=== PATIENT | male | born 1950 | race Caucasian/White ===

== ENCOUNTER → 2016-04-10 | Outpatient (CLI) | payer MEDICARE ==
[2016-04-10 12:05] LABS: Blood Urea Nitrogen 15 mg/dL (9-20); Non-African American GFR(MDRD) >60 (>60 ml/min/1.73 sqM)
--- NOTE | 2016-04-10 13:03 | CT ---
EXAMINATION TYPE: CT ChestAbdPelvis w con DATE OF EXAM: 04/10/2016 12:44 PM COMPARISON: November 16, 2015 HISTORY: Patient has no complaints at time of study. Follow up study for known liposarcoma. CT DLP: 1832 mGycm CONTRAST: CT scan of the chest, abdomen and pelvis is performed with Oral Contrast and with IV Contrast, patien t injected with 100 mL of Omnipaque 300. CT Chest: LUNGS: The lungs are clear and free of infiltrate or atelectasis. No pulmonary nodule or mass is det ected. No pleural effusion or CT evidence of interstitial lung disease. MEDIASTINUM: Thoracic aorta is of normal caliber. The heart is not enlarged. No evidence for media stinal mass or adenopathy. HILAR STRUCTURES: No evidence for mass. No hilar adenopathy is appreciated. OTHER: No significant abnormality. CONTRAST CT ABDOMEN AND PELVIS FINDINGS: LIVER/GB: Calcified gallstone is seen within the gallbladder. No space occupying hepatic lesion. Bili yamilka tree is of normal caliber. PANCREAS: No inflammation. No distinct mass. SPLEEN: No splenic enlargement. No lesion seen. ADRENALS: No nodule. No thickening. KIDNEYS/BLADDER: No hydronephrosis. No nephrolithiasis. No disctinct renal mass. BOWEL: Normal appendix. Normal bowel caliber. No inflammation. GENITAL ORGANS: No gross abnormality. LYMPH NODES: No greater than 1cm abdominal or pelvic lymph nodes are appreciated. AORTA: No significant abnormality. OSSEOUS STRUCTURES: No significant abnormality is seen. OTHER: Again noted is a large heterogenous intra-abdominal mass with solid, fluid/necrotic and calcif ic components seen. Greatest transverse measurement is currently 24 cm versus 21 cm previously, AP di mension is 16 cm versus 12.1 cm previously and craniocaudal measurement is 15 cm versus 18.7 [address] Ritika cent to the descending colon at the L4-5 level there is a new satellite mass with internal calcificat ions and measures 5.5 x 4.0 cm. Stable satellite mass is noted in the region of the left internal alexus ac chain which measures of 4.0 cm in greatest dimension versus 3.2 cm previously. Resolution of small ascites seen previously. IMPRESSION: 1. Large heterogenous intra-abdominal mass appears to have enlarged slightly in size in the interval . In addition there is a new satellite nodule adjacent to the descending colon. Satellite nodule in t he pelvis is slightly larger in size as well. 2. No evidence for metastatic disease to solid abdominal viscera or the lungs. 3. Cholelithiasis.
--- NOTE | 2016-04-11 12:03 | ECHOF ---
Referral Reason:C49.9 Lipoma, Chemo Exposure Z01.818 MEASUREMENTS -------- HEIGHT: 182.9 cm WEIGHT: 72.6 kg BP: RVIDd: 3.1 cm (< 3.3) IVSd: 1.0 cm (0.6 - 1.1) LVIDd: 5.0 cm (3.9 - 5.3) LVPWd: 1.1 cm (0.6 - 1.1) IVSs: 1.3 cm LVIDs: 3.8 cm LVPWs: 1.0 cm LA Diam: 3.3 cm (2.7 - 3.8) LAESV Index (A-L): 28.09 ml/m Ao Diam: 3.6 cm (2.0 - 3.7) AV Cusp: 2.4 cm (1.5 - 2.6) LA Diam: 3.4 cm (2.7 - 3.8) MV EXCURSION: 22.560 mm (> 18.000) MV EF SLOPE: 108 mm/s (70 - 150) EPSS: 0.5 cm MV E Sebastien: 0.60 m/s MV DecT: 266 ms MV A Sebastien: 0.72 m/s MV E/A Ratio: 0.84 RAP: 5.00 mmHg RVSP: 38.87 mmHg FINDINGS -------- Sinus rhythm. This was a technically good study. LV size, wall thickness and systolic function are normal, with an EF greater than 55%. The right ventricle is normal in size. LA is midly dilated 29-33ml/m2. The right atrial size is normal. There is mild aortic valve sclerosis. There is no evidence of aortic regurgitation. Mild mitral annular calcification present. Mild mitral regurgitation is present. Mild tricuspid regurgitation present. There is mild pulmonary hypertension. The right ventricular systolic pressure, as measured by Doppler, is 38.87mmHg. There is no pulmonic regurgitation present. The aortic root size is normal. There is no pericardial effusion. CONCLUSIONS -------- 1. LV size, wall thickness and systolic function are normal, with an EF greater than 55%. 2. LA is midly dilated 29-33ml/m2. 3. There is mild aortic valve sclerosis. 4. Mild mitral annular calcification present. 5. Mild mitral regurgitation is present. 6. Mild tricuspid regurgitation present. 7. There is mild pulmonary hypertension. 8. The right ventricular systolic pressure, as measured by Doppler, is 38.87mmHg. COMPOSITE TECHNICIAN: Angélica Foster RDCS
== END | disposition home or self-care (01) ==
LOC: RADCTMAIN 11:04
PROVIDERS: ATTEND Internal Medicine Hematology & Oncology
DX: C49.9 Malignant neoplasm of connective and soft tissue, unspecified (principal); R19.00 Intra-abdominal and pelvic swelling, mass and lump, unspecified site; K80.20 Calculus of gallbladder without cholecystitis without obstruction; K63.89 Other specified diseases of intestine; I08.8 Other rheumatic multiple valve diseases
CPT/HCPCS: 93306; 82565; 84520; 71260; 74177; 36415; Q9967

== ENCOUNTER → 2016-07-01 | Outpatient (CLI) | payer MEDICARE ==
--- NOTE | 2016-07-01 09:44 | CT ---
EXAMINATION TYPE: CT abdomen pelvis w con DATE OF EXAM: 07/01/2016 8:32 AM COMPARISON: 04/10/2016 HISTORY: Patient has no complaints at time of study. Follow up study for known liposarcoma. CT DLP: 641.3 mGycm CONTRAST: CT scan of the abdomen and pelvis is performed with Oral Contrast and with IV Contrast, patient injec jose with 100 mL of Omnipaque 300. FINDINGS: LUNG BASES-: No visible nodule. No infiltrate. LIVER/GB: Calcified gallstone identified. No space occupying hepatic lesion. Biliary tree is of no rmal caliber. PANCREAS: There is new masslike fullness involving the pancreatic tail measuring 3.7 x 2.6 cm. The re mainder of the pancreas is unremarkable. SPLEEN: No splenic enlargement. No lesion seen. ADRENALS: No nodule. No thickening. KIDNEYS/BLADDER: No hydronephrosis. No nephrolithiasis. No disctinct renal mass. Urinary bladder g rossly unremarkable. BOWEL: Normal appendix. Normal bowel caliber. No inflammation. GENITAL ORGANS: No gross abnormality. LYMPH NODES: No greater than 1cm abdominal or pelvic lymph nodes are appreciated. AORTA: No significant abnormality. OSSEOUS STRUCTURES: No significant abnormality is seen. OTHER: Large heterogenous intra-abdominal mass with solid, fluid&^ IMPRESSION: 1. Dominant intra-abdominal mass persists although is a slightly smaller in size. Additional satellit e nodules also persist although appear to be smaller in size. 2. Masslike fullness of the pancreatic tail is a new finding. Additional lesion in this region or alberto creatic primary is not excluded.
== END ==
LOC: RADCTMAIN 07:36
PROVIDERS: ATTEND Internal Medicine Medical Oncology
DX: C49.9 Malignant neoplasm of connective and soft tissue, unspecified (principal); R19.00 Intra-abdominal and pelvic swelling, mass and lump, unspecified site
CPT/HCPCS: 74177; Q9967

== ENCOUNTER → 2016-07-29 | Outpatient (CLI) | payer MEDICARE ==
[2016-07-29 11:06] LABS: Anisocytosis Slight; Aty Lym Flag Slight; CH 29.8; CHCM 32.5; HCT 34.6 % (39.0-53.0); HDW 2.45; HGB 11.3 gm/dL (13.0-17.5); MCHC 32.6 g/dL (31.0-37.0); MCV 91.8 fL (80.0-100.0); Mean Platelet Volume 7.5; RBC 3.77 m/uL (4.30-5.90); RDW 16.8 % (11.5-15.5); WBC 2.9 k/uL (3.8-10.6)
[2016-07-29 11:18] LABS: Add Differential Manual Differential
[2016-07-29 11:21] LABS: Manual Review Performed; Nucleated Red Blood Cells 0 /100 WBC (0-0); Total Cells Counted 100
== END | disposition home or self-care (01) ==
LOC: LABWHC1 10:30
PROVIDERS: ATTEND Internal Medicine Hematology
DX: C49.9 Malignant neoplasm of connective and soft tissue, unspecified (principal); D69.59 Other secondary thrombocytopenia
CPT/HCPCS: 36415; 85025

== ENCOUNTER → 2016-08-19 | Outpatient (CLI) | payer MEDICARE ==
[2016-08-19 10:19] LABS: Anisocytosis Moderate; Basophils % (A) 1 %; CH 30.8; CHCM 32.1; Eosinophils # (A) 0.1 k/uL (0-0.7); Eosinophils % (A) 2 %; HCT 35.4 % (39.0-53.0); HDW 2.49; HGB 11.4 gm/dL (13.0-17.5); Luc # (Auto) 0.13; Luc % (Auto) 4; Lymphocytes # (A) 0.8 k/uL (1.0-4.8); Lymphocytes % (A) 24 %; MCHC 32.1 g/dL (31.0-37.0); MCV 96.5 fL (80.0-100.0); Macrocytosis Moderate; Monocytes # (A) 0.1 k/uL (0-1.0); Monocytes % (A) 3 %; Neutrophils # (A) 2.1 k/uL (1.3-7.7); Neutrophils % (A) 66 %; RBC 3.67 m/uL (4.30-5.90); RDW 20.7 % (11.5-15.5); WBC 3.2 k/uL (3.8-10.6); WBC (Perox) 3.45
== END | disposition home or self-care (01) ==
LOC: LABWHC1 09:25
PROVIDERS: ATTEND Internal Medicine Hematology
DX: C49.9 Malignant neoplasm of connective and soft tissue, unspecified (principal)
CPT/HCPCS: 36415; 85025

== ENCOUNTER → 2016-09-01 | Outpatient (CLI) | payer MEDICARE ==
[2016-09-01 08:23] LABS: ALT 24 U/L (21-72); AST 14 U/L (17-59); Alkaline Phosphatase 195 U/L (38-126); Anion Gap 11 mmol/L; Blood Urea Nitrogen 18 mg/dL (9-20); Calcium 8.5 mg/dL (8.4-10.2); Carbon Dioxide 27 mmol/L (22-30); Chloride 105 mmol/L (98-107); Glucose 141 mg/dL (74-99); Non-African American GFR(MDRD) >60 (>60 ml/min/1.73 sqM); Potassium 3.7 mmol/L (3.5-5.1); Sodium 143 mmol/L (137-145); Total Bilirubin 0.5 mg/dL (0.2-1.3); Total Protein 6.8 g/dL (6.3-8.2)
--- NOTE | 2016-09-01 10:08 | CT ---
EXAMINATION TYPE: CT ChestAbdPelvis w con DATE OF EXAM: 09/01/2016 INDICATION: Liposarcoma COMPARISON: 07/01/2016 CT abdomen pelvis, 04/10/2016 CT chest abdomen pelvis CT DLP: 901.60 mGycm CONTRAST: 100 mL Omnipaque 300 TECHNIQUE: Axial images at 5 mm thick sections. Reconstructed images in the coronal plane. Delayed images through the kidneys. FINDINGS: CT CHEST: Portion of the thyroid visualized is normal. No suspicious lung nodules or focal infiltrates are present. A 1.0 cm lymph node is in the pretracheal space near the superior mediastinum. This has enlarged from March 2016 The ascending aorta diameter at the level of the main pulmonary artery is 3.7 cm. The main pulmonary artery diameter at the bifurcation is 2.[address] ABDOMEN: The large mass within the anterior mid abdomen is currently estimated to measure 11.5 AP x 20.6 transverse x 16.5 cranial caudal cm. This is similar in size to the comparison of June 2016. Previous measurements provided were transverse dimension 24 cm and 16 cm AP dimension and 15 cm crani ocaudal dimension. There is a 4.1 x 5.2 cm enhancing mass mid left paracolic gutter. Series 3 image 1 07. This was present previously and is slightly larger over the interval. There is mesenteric fat str anding within the mid pelvis which may be displacing some loops of bowel. Liver: There is diffuse fatty infiltration through the liver with some focal spurring along the later al margin of the right lobe. Spleen: Normal Pancreas: There is a heterogenous slightly hypodense 4.3 x 3.7 cm the tail of the pancreas mass. This is larger than the comparison of 07/01/2016. Adrenal glands: The adrenal glands are normal. Gallbladder: Gallstone is present. Kidneys: No masses are evident. No hydronephrosis is present. No cysts are present. Delayed images were obtained through the kidneys, which remain unremarkable. Aorta: Vascular calcification is within the aorta. Inferior vena cava: Normal. CT PELVIS: Loops of bowel within the abdomen and pelvis are normal. Diverticular changes are within the sigm oid colon. Some displacement of loops of bowel from pelvic mesenteric fat may be present within the u pper pelvis. Appendix: Not identified. Urinary bladder: Decompressed with limited evaluation. Genitourinary structures: Prostate is prominent. Osseous structures: No suspicious lytic or sclerotic lesions. IMPRESSIONS: 1. Large mid abdominal mass is similar to the comparison study. 2. Enlarging left paracolic mass in tail of pancreas mass. 3. Borderline enlarged superior mediastinal lymph node, increased in size from June 2016. 4. Gallstone
== END | disposition home or self-care (01) ==
LOC: RADCTMAIN 07:38
PROVIDERS: ATTEND Internal Medicine Hematology
DX: C49.9 Malignant neoplasm of connective and soft tissue, unspecified (principal); K80.80 Other cholelithiasis without obstruction; K63.89 Other specified diseases of intestine
CPT/HCPCS: 80053; 71260; 74177; 36415; Q9967

== ENCOUNTER → 2016-10-27 | Outpatient (CLI) | payer MEDICARE ==
[2016-10-27 08:10] LABS: Blood Urea Nitrogen 15 mg/dL (9-20); Non-African American GFR(MDRD) >60 (>60 ml/min/1.73 sqM)
--- NOTE | 2016-10-27 09:11 | CT ---
EXAMINATION TYPE: CT ChestAbdPelvis w con DATE OF EXAM: 10/27/2016 COMPARISON: 09/01/2016 and 07/01/2016. HISTORY: Liposarcoma (dedifferentiated) CT DLP: 985.4 mGycm. Automated Exposure Control for Dose Reduction was Utilized. CONTRAST: CT scan of the thorax, abdomen and pelvis is performed with IV Contrast, patient injected with 100 mL of Omnipaque 300. FINDINGS: LUNGS: The lungs are grossly clear, there is no concerning parenchymal mass or nodule identified. T here is no pleural effusion or pneumothorax seen. The tracheobronchial tree is patent. MEDIASTINUM: The previously seen pretracheal lymph node represents fluid within the aorticopulmonary recess. There are no greater than 1 cm hilar or mediastinal lymph nodes. No pericardial effusion is seen. OTHER: Note is made of retroareolar left asymmetric gynecomastia. Mild calcific atheromatous changes are seen of the coronary arteries, three-vessel. LIVER/GB: The previously seen hepatic steatosis has improved as well as the transient hepatic attenua tion difference. Single hypoattenuated punctate hepatic focus near the dome of the diaphragm is prese nt and too small to accurately characterize. Cholelithiasis is again noted. MESENTERY: When measured in the same planes the heterogenous mass representing pathologically proven dedifferentiated liposarcoma is overall similar in size in comparison to the prior exam of 09/01/2016, growing minimally in craniocaudal dimension, as it measures 21.0 x 11.5 x 17.6 cm and previously lesli sured 20.6 x 11.5 x 16.5 cm. On the exam previous to that in June 2016 this measured 24 x 16 x 15 cm . There is minimal mass effect upon the inferior vena cava and displacement of bowel loops without ev idence of bowel obstruction or bowel wall thickening to indicate vascular compromise. Again there is haziness of the central mesentery and surrounding mesenteric fat. No new peritoneal implants or nodul es are identified. PANCREAS: There is continued interval growth of the heterogenous pancreatic lesion containing coarse calcifications, with similar characteristics to the primary mesenteric neoplasm. This currently measu res 4.1 x 5.0 cm and previously measured 4.3 x 3.7 cm. There is no associated ductal dilatation. SPLEEN: No significant abnormality is seen. ADRENALS: No significant abnormality is seen. KIDNEYS: No significant abnormality is seen. BOWEL: Sigmoid diverticulosis without evidence of diverticulitis. LYMPH NODES: At the aortic iliac bifurcation there is a single prominent lymph node measuring 1.1 cm in short axis, similar to the prior. Additional lymph node within the left lateral mesentery on serie s 3 image 86 has decreased in size from the prior exam currently also measuring 1.1 cm in short axis. . OSSEOUS STRUCTURES: No significant abnormality is seen. OTHER: No significant additional abnormality is seen. IMPRESSION: 1. Minimal enlargement of the primary mesenteric dedifferentiated liposarcoma increasing only approxi mately 1.0 cm in craniocaudal dimension. Two mesenteric lymph nodes are similar from the prior exam, mildly enlarged. 2. Continued enlargement of the pancreatic tail mass, which should be considered metastatic disease u ntil proven otherwise. 3. No evidence of adenopathy or metastasis within the chest. 4. Cholelithiasis and sigmoid diverticulosis.
== END | disposition home or self-care (01) ==
LOC: RADCTMAIN 07:36
PROVIDERS: ATTEND Internal Medicine Medical Oncology
DX: C49.9 Malignant neoplasm of connective and soft tissue, unspecified (principal); C76.8 Malignant neoplasm of other specified ill-defined sites; K80.20 Calculus of gallbladder without cholecystitis without obstruction; K57.30 Diverticulosis of large intestine without perforation or abscess without bleeding
CPT/HCPCS: 82565; 84520; 71260; 74177; Q9967

== ENCOUNTER → 2017-04-13 | Outpatient (CLI) | payer MEDICARE ==
[2017-04-13 08:05] LABS: ALT 23 U/L (21-72); AST 13 U/L (17-59); Albumin 3.7 g/dL (3.5-5.0); Alkaline Phosphatase 129 U/L (38-126); Anion Gap 9 mmol/L; Blood Urea Nitrogen 13 mg/dL (9-20); Calcium 8.8 mg/dL (8.4-10.2); Carbon Dioxide 29 mmol/L (22-30); Chloride 105 mmol/L (98-107); Glucose 97 mg/dL (74-99); LDH 383 U/L (313-618); Phosphorus 3.3 mg/dL (2.5-4.5); Potassium 4.3 mmol/L (3.5-5.1); Sodium 143 mmol/L (137-145); Total Bilirubin 0.4 mg/dL (0.2-1.3); Total Protein 6.5 g/dL (6.3-8.2)
[2017-04-13 08:28] LABS: Anisocytosis Slight; HCT 32.7 % (39.0-53.0); HGB 10.6 gm/dL (13.0-17.5); MCH 38.6 pg (25.0-35.0); MCHC 32.5 g/dL (31.0-37.0); MCV 118.7 fL (80.0-100.0); Macrocytosis Marked; Mean Platelet Volume 7.8; Platelet Count 147 k/uL (150-450); RBC 2.75 m/uL (4.30-5.90); RDW 16.9 % (11.5-15.5); WBC 3.2 k/uL (3.8-10.6)
--- NOTE | 2017-04-13 09:42 | CT ---
EXAMINATION TYPE: CT chest wo con DATE OF EXAM: 04/13/2017 COMPARISON: 01/19/2017 HISTORY: 66-year-old male dedifferentiated liposarcoma follow up TECHNIQUE: Contiguous axial scanning of the chest without IV contrast. Coronal and sagittal reconstru ctions performed. CT DLP: 614.26 mGycm Automated exposure control for dose reduction was used. FINDINGS: Heart is normal size without pericardial effusion. Coronary vessel calcifications are present in karely rkable for coronary artery disease. Ascending aorta is ectatic at 3.8 cm with conventional branching anatomy. Upper descending thoracic a victoriano is ectatic at 3.0 cm. Right anterior chest wall injection port with catheter tip at the mid SVC level. No thoracic lymphadenopathy by CT size criteria. Mild bilateral gynecomastia is noted. Evaluation of the lungs shows no consolidation or pleural effusion. A 4 mm left lower lobe pulmonary nodule axial image 44 is new. Abdomen and pelvis reported separately. Bones: Scattered endplate Schmorl's nodes mid and lower thoracic spine. No osseous destructive proces s seen. IMPRESSION: 1. A 4 MM LEFT LOWER LOBE PULMONARY NODULE IS NEW FROM 01/19/2017. CLOSE FOLLOW-UP RECOMMENDED. A MET ASTATIC PULMONARY NODULE IS NOT EXCLUDED AT THIS TIME. 2. ABDOMEN AND PELVIS REPORTED SEPARATELY.
--- NOTE | 2017-04-13 10:03 | CT ---
EXAMINATION TYPE: CT abdomen pelvis w con DATE OF EXAM: 04/13/2017 COMPARISON: 01/19/2017 HISTORY: 66-year-old male with dedifferentiated liposarcoma follow up TECHNIQUE: Contiguous axial scanning of the abdomen and pelvis following administration of 100 ml Omn ipaque 300 IV contrast. Delayed images through the kidneys and coronal/sagittal reconstructions perf ormed. CT DLP: 1611.05 mGycm Automated exposure control for dose reduction was used. FINDINGS: The previous lesion in the right hepatic lobe is less pronounced. Main portal vein is patent. 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 1.9 cm gallstone noted. No abnormal gallbladder distention. Adrenal glands, kidneys, and spleen appea r within normal limits. Very large abdominal mass redemonstrated. This has some areas of partial calcification. There is hete rogeneous enhancement in the mass measures approximately up to 24.3 cm wide by 9.9 cm AP by 19.7 cm c raniocaudal. There is some loculated ascites fluid along the right lateral margin, unchanged from ivan or. Various focal enhancing components are minimally larger, such as along the inferior margin of the mass, axial image 62 now measuring 2.6 cm versus 9 mm, previously, along the posterior lower margin axial image 55 measuring 2.7 cm versus 2.5 cm, previously, along the mid posterior margin measuring 2 .6 cm versus 2.1 cm, previously, along the left superior margin measuring 4.4 cm versus 4.1 cm, previ ously axial image 37. Redemonstrated left omental nodularity, axial image 34 measuring up to 2.3 cm. Enhancing mass/lymph node along the lower aortocaval retroperitoneum near the aortic bifurcation zuleyma ures 2.6 x 2.1 cm versus 2.6 x 1.9 cm, previously, minimally larger now. A partially calcified mass in the left midabdomen anterior to the descending colon measures 5.2 x 4.0 cm, not significant change. Partially calcified mass along the left external iliac chain measures 4.4 cm, not significantly miles ed. Small right paramedian supraumbilical Triana hernia containing anterior wall of proximal transverse colon. Hernia measures 4.0 cm wide. No dilated small bowel or free air. Mass effect on to multiple small bowel loops as well as the pancr eatic tail. Sigmoid diverticulosis without pericolonic inflammatory change. Bladder urine distended. Prostate gland is enlarged at 5.1 cm wide. Pelvic phlebolith are noted. Smal l amount of pelvic free fluid similar to prior. Bones: No osseous destructive process seen. IMPRESSION: 1. PARTIALLY CALCIFIED LARGE ABDOMINAL MASS COMPATIBLE WITH PATIENT'S HISTORY OF DEDIFFERENTIATED LIP OSARCOMA. WHILE THE OVERALL DIMENSIONS (24.3 X 19.7 CM) ARE NOT SIGNIFICANT CHANGED, FOCAL NODULAR EN HANCING COMPONENTS OF THE MASS SHOW INCREASING SIZE. 2. LOWER AORTOCAVAL LYMPH NODE STABLE TO MINIMALLY LARGER MEASURING UP TO 2.6 CM. 3. PARTIALLY CALCIFIED LEFT MID ABDOMINAL MASS NOT SIGNIFICANTLY CHANGED MEASURING UP TO 5.2 CM. EAMON TIONAL PARTIALLY CALCIFIED MASS ALONG THE LEFT EXTERNAL ILIAC CHAIN MEASURING 4.4 CM IS ALSO NOT SIGN IFICANTLY CHANGED. 4. THE SUPERIOR MESENTERIC VEIN IS NOW DIMINUTIVE WITHOUT APPRECIABLE ENHANCEMENT SUGGESTING NOW RN UNIT MANAGER JOHNNIE THROMBOSIS. 5. MILD ABDOMINOPELVIC ASCITES IS SIMILAR. 6. STABLE 4.0 CM SUPRAUMBILICAL RIGHT PARAMEDIAN TRIANA HERNIA INVOLVING PROXIMAL TRANSVERSE COLON. 7. CHOLELITHIASIS AND SIGMOID DIVERTICULOSIS. 8. CHEST REPORTED SEPARATELY.
[2017-04-13 11:00] LABS: Basophils # (M) 0.06 k/uL (0-0.2); Eosinophils # (M) 0.16 k/uL (0-0.7); Lymphocytes # (M) 0.96 k/uL (1.0-4.8); Monocytes # (M) 0.48 k/uL (0-1.0); Neutrophils # (M) 1.54 k/uL (1.3-7.7); Neutrophils % (M) 48 %; Nucleated Red Blood Cells 0 /100 WBC (0-0); Total Cells Counted 100
== END | disposition home or self-care (01) ==
LOC: RADCTMAIN 07:18
PROVIDERS: ATTEND Internal Medicine Hematology
DX: C49.9 Malignant neoplasm of connective and soft tissue, unspecified (principal); K46.0 Unspecified abdominal hernia with obstruction, without gangrene; K80.20 Calculus of gallbladder without cholecystitis without obstruction; K57.30 Diverticulosis of large intestine without perforation or abscess without bleeding; R18.8 Other ascites; R91.1 Solitary pulmonary nodule; R59.0 Localized enlarged lymph nodes; Z88.6 Allergy status to analgesic agent; Z88.5 Allergy status to narcotic agent; Z88.0 Allergy status to penicillin; Z88.2 Allergy status to sulfonamides
CPT/HCPCS: 80053; 83615; 83735; 84100; 85027; 71250; 74177; 36415; Q9967

== ENCOUNTER 2018-03-04 16:16 | Inpatient (IN) | payer MEDICARE ==
[2018-03-04] MEDS ORDERED: PANTOPRAZOLE 40 MG/10 ML VIAL IVP STA (16:49)
[2018-03-04] MEDS ORDERED: ONDANSETRON 4 MG/2 ML VIAL IVP STA (16:49)
[2018-03-04] MEDS ORDERED: SODIUM CHLORIDE 0.9% 500 ML 500 ML IV STA (16:49)
[2018-03-04] MEDS: SODIUM CHLORIDE 0.9% 1,000 ML IV STA (17:36)
[2018-03-04 18:15] LABS: Partial Thromboplastin Time 27.2 sec (22.0-30.0); Prothrombin Time 10.4 sec (9.0-12.0)
[2018-03-04 18:21] LABS: Creatine Kinase 21 U/L (55-170)
[2018-03-04 18:24] LABS: ALT 23 U/L (21-72); AST 17 U/L (17-59); Albumin 2.7 g/dL (3.5-5.0); Alkaline Phosphatase 175 U/L (38-126); Anion Gap 8 mmol/L; Blood Urea Nitrogen 18 mg/dL (9-20); Carbon Dioxide 28 mmol/L (22-30); Chloride 102 mmol/L (98-107); Glucose 115 mg/dL (74-99); Lipase 35 U/L (23-300); Potassium 3.6 mmol/L (3.5-5.1); Sodium 138 mmol/L (137-145); Total Bilirubin 0.3 mg/dL (0.2-1.3); Total Protein 5.1 g/dL (6.3-8.2)
[2018-03-04 18:29] LABS: Basophils % (A) 0 %; Eosinophils # (A) 0.1 k/uL (0-0.7); Eosinophils % (A) 1 %; HCT 30.5 % (39.0-53.0); HGB 9.8 gm/dL (13.0-17.5); Hypochromasia Slight; Lymphocytes # (A) 1.2 k/uL (1.0-4.8); Lymphocytes % (A) 16 %; MCH 35.2 pg (25.0-35.0); MCHC 32.2 g/dL (31.0-37.0); MCV 109.2 fL (80.0-100.0); Macrocytosis Marked; Monocytes # (A) 0.6 k/uL (0-1.0); Monocytes % (A) 8 %; Neutrophils # (A) 5.5 k/uL (1.3-7.7); Neutrophils % (A) 74 %; Platelet Count 325 k/uL (150-450); RBC 2.79 m/uL (4.30-5.90); RDW 15.6 % (11.5-15.5); WBC 7.5 k/uL (3.8-10.6)
[2018-03-04 18:33] LABS: Creatine Kinase MB 0.4 ng/mL (0.0-2.4); Troponin I <0.012 ng/mL (0.000-0.034)
[2018-03-04 18:57] LABS: Polychromasia Present
--- NOTE | 2018-03-04 21:12 | ED ---
GI Bleed HPI - General Chief complaint: GI Bleed Stated complaint: VOMITING BLOOD Time Seen by Provider: 03/04/18 16:44 Source: patient Mode of arrival: ambulatory Limitations: no limitations - Related Data Home Medications Medication Instructions Recorded Confirmed Dicyclomine [Bentyl] 10 mg PO QID 03/04/18 03/04/18 Enoxaparin [Lovenox] 100 mg SQ DAILY@1200 03/04/18 03/04/18 LORazepam [Ativan] 0.5 mg PO Q6HR PRN 03/04/18 03/04/18 Morphine Sulfate Ir [MSIR] 15 mg PO Q8HR PRN 03/04/18 03/04/18 OLANZapine [ZyPREXA] 5 mg PO HS 03/04/18 03/04/18 Ondansetron Odt [Zofran ODT] 4 - 8 mg PO Q8HR PRN 03/04/18 03/04/18 Promethazine HCl 12.5 mg PO Q6HR PRN 03/04/18 03/04/18 Previous Rx's Medication Instructions Recorded traMADol HCl [Ultram] 50 mg PO TID PRN #90 tab 02/08/16 Allergies Allergy/AdvReac Type Severity Reaction Status Date / Time aspirin Allergy Severe Nausea Verified 03/04/18 16:58 codeine Allergy Severe Nausea & Verified 03/04/18 16:58 Vomiting Penicillins Allergy Severe Rash/Hives Verified 03/04/18 16:58 Sulfa (Sulfonamide Allergy Severe Rash/Hives Verified 03/04/18 16:58 Antibiotics) Mushroom Allergy Unknown Verified 03/04/18 16:58 Review of Systems ROS Statement: Those systems with pertinent positive or pertinent negative responses have been documented in the HPI. ROS Other: All systems not noted in ROS Statement are negative. Past Medical History Past Medical History: Cancer, Eye Disorder, Pneumonia, Prostate Disorder Additional Past Medical History / Comment(s): 11/16/15 pt had abdominal pain, abdominal mass and diagnosed with liposarcoma, started chemo, has had CINV, cystits, amenia, BASAL CELL skin cancer (several) with removals, lt eye cataract ,prostatitis since age 22, agent orange exposure. History of Any Multi-Drug Resistant Organisms: MRSA Date of last positivie culture/infection: 02/29/16 MDRO Source:: TOE Past Surgical History: Appendectomy, Tonsillectomy Additional Past Surgical History / Comment(s): 12/31/15, LAPAROTOMY @ [facility] (UNABLE TO DO BOWEL RESECTION TUMOR INVOLVED IN MESENTARY). Several areas of basal cell ca removed, 11/19/15 needle aspiration cat scan guided bx of abdominal mass, mediport. Past Anesthesia/Blood Transfusion Reactions: No Reported Reaction Additional Past Anesthesia/Blood Transfusion Reaction / Comment(s): PT'S FATHER WENT INTO A COMA AND SHORTLY THEREAFTER,AFTER RECEIVING IV CONTRAST DYE. Past Psychological History: No Psychological Hx Reported Smoking Status: Never smoker Past Alcohol Use History: None Reported Past Drug Use History: None Reported - Past Family History Mother Family Medical History: Coronary Artery Disease (CAD), Hypertension Additional Family Medical History / Comment(s): " bled to from ulcer d/t prednisone". gallbladder removed Father Additional Family Medical History / Comment(s): D/T ALLERGY TO IV DYE.( went into a coma and shortly there after. Brother(s) Family Medical History: Cancer (burkitt's lymphoma) General Exam Limitations: no limitations Course Vital Signs 03/04/18 03/04/18 16:34 20:22 Temperature 98.4 F 98.3 F Pulse Rate 84 77 Respiratory 18 18 Rate Blood Pressure 116/70 105/71 O2 Sat by Pulse 94 L 96 Oximetry Medical Decision Making - Lab Data Result diagrams: 03/04/18 17:31 03/04/18 17:31 Lab Results 03/04/18 03/04/18 03/04/18 Range/Units 17:31 17:31 17:31 WBC 7.5 (3.8-10.6) k/uL RBC 2.79 L (4.30-5.90) m/uL Hgb 9.8 L (13.0-17.5) gm/dL Hct 30.5 L (39.0-53.0) % MCV 109.2 H (80.0-100.0) fL MCH 35.2 H (25.0-35.0) pg MCHC 32.2 (31.0-37.0) g/dL RDW 15.6 H (11.5-15.5) % Plt Count 325 (150-450) k/uL Neutrophils % 74 % Lymphocytes % 16 % Monocytes % 8 % Eosinophils % 1 % Basophils % 0 % Neutrophils # 5.5 (1.3-7.7) k/uL Lymphocytes # 1.2 (1.0-4.8) k/uL Monocytes # 0.6 (0-1.0) k/uL Eosinophils # 0.1 (0-0.7) k/uL Basophils # 0.0 (0-0.2) k/uL Polychromasia Present Hypochromasia Slight Macrocytosis Marked PT (9.0-12.0) sec INR (<1.2) APTT (22.0-30.0) sec Sodium 138 (137-145) mmol/L Potassium 3.6 (3.5-5.1) mmol/L Chloride 102 (98-107) mmol/L Carbon Dioxide 28 (22-30) mmol/L Anion Gap 8 mmol/L BUN 18 (9-20) mg/dL Creatinine 0.57 L (0.66-1.25) mg/dL Est GFR (CKD-EPI)AfAm >90 (>60 ml/min/1.73 sqM) Est GFR (CKD-EPI)NonAf >90 (>60 ml/min/1.73 sqM) Glucose 115 H (74-99) mg/dL Calcium 8.0 L (8.4-10.2) mg/dL Magnesium 2.0 (1.6-2.3) mg/dL Total Bilirubin 0.3 (0.2-1.3) mg/dL AST 17 (17-59) U/L ALT 23 (21-72) U/L Alkaline Phosphatase 175 H (38-126) U/L Total Creatine Kinase 21 L (55-170) U/L CK-MB (CK-2) 0.4 (0.0-2.4) ng/mL CK-MB (CK-2) Rel Index 1.9 Troponin I <0.012 (0.000-0.034) ng/mL Total Protein 5.1 L (6.3-8.2) g/dL Albumin 2.7 L (3.5-5.0) g/dL Lipase 35 (23-300) U/L Blood Type Blood Type Recheck Antibody Screen Spec Expiration Date 03/04/18 03/04/18 Range/Units 17:31 17:31 WBC (3.8-10.6) k/uL RBC (4.30-5.90) m/uL Hgb (13.0-17.5) gm/dL Hct (39.0-53.0) % MCV (80.0-100.0) fL MCH (25.0-35.0) pg MCHC (31.0-37.0) g/dL RDW (11.5-15.5) % Plt Count (150-450) k/uL Neutrophils % % Lymphocytes % % Monocytes % % Eosinophils % % Basophils % % Neutrophils # (1.3-7.7) k/uL Lymphocytes # (1.0-4.8) k/uL Monocytes # (0-1.0) k/uL Eosinophils # (0-0.7) k/uL Basophils # (0-0.2) k/uL Polychromasia Hypochromasia Macrocytosis PT 10.4 (9.0-12.0) sec INR 1.0 (<1.2) APTT 27.2 (22.0-30.0) sec Sodium (137-145) mmol/L Potassium (3.5-5.1) mmol/L Chloride (98-107) mmol/L Carbon Dioxide (22-30) mmol/L Anion Gap mmol/L BUN (9-20) mg/dL Creatinine (0.66-1.25) mg/dL Est GFR (CKD-EPI)AfAm (>60 ml/min/1.73 sqM) Est GFR (CKD-EPI)NonAf (>60 ml/min/1.73 sqM) Glucose (74-99) mg/dL Calcium (8.4-10.2) mg/dL Magnesium (1.6-2.3) mg/dL Total Bilirubin (0.2-1.3) mg/dL AST (17-59) U/L ALT (21-72) U/L Alkaline Phosphatase (38-126) U/L Total Creatine Kinase (55-170) U/L CK-MB (CK-2) (0.0-2.4) ng/mL CK-MB (CK-2) Rel Index Troponin I (0.000-0.034) ng/mL Total Protein (6.3-8.2) g/dL Albumin (3.5-5.0) g/dL Lipase (23-300) U/L Blood Type A Positive Blood Type Recheck No Antibody Screen NEGATIVE Spec Expiration Date 03/07/2018 - 2330 Disposition Clinical Impression: Gastrointestinal hemorrhage, Upper gastrointestinal hemorrhage, Anemia Disposition: ADMITTED IP TO THIS HOSP Condition: Fair Is patient prescribed a controlled substance at d/c from ED?: No Referrals: Mark Martines DO [Primary Care Provider] - 1-2 days
[2018-03-05] MEDS: SODIUM CHLORIDE 0.9% 1,000 ML IV STA (02:13)
[2018-03-05] MEDS ORDERED: PROMETHAZINE 25 MG TAB PO PRN (08:39)
[2018-03-05] MEDS ORDERED: traMADol 50 MG TAB PO PRN (08:39)
[2018-03-05] MEDS ORDERED: LORazepam 0.5 MG TAB PO PRN (08:39)
[2018-03-05 09:42] LABS: Basophils % (A) 0 %; Eosinophils # (A) 0.1 k/uL (0-0.7); Eosinophils % (A) 2 %; HCT 28.3 % (39.0-53.0); HGB 8.9 gm/dL (13.0-17.5); Hypochromasia Moderate; Lymphocytes % (A) 15 %; MCH 34.8 pg (25.0-35.0); MCHC 31.5 g/dL (31.0-37.0); MCV 110.7 fL (80.0-100.0); Macrocytosis Marked; Mean Platelet Volume 7.9; Monocytes # (A) 0.4 k/uL (0-1.0); Monocytes % (A) 6 %; Neutrophils # (A) 4.9 k/uL (1.3-7.7); Neutrophils % (A) 75 %; Platelet Count 269 k/uL (150-450); RBC 2.56 m/uL (4.30-5.90); RDW 15.7 % (11.5-15.5); WBC 6.5 k/uL (3.8-10.6)
[2018-03-05 09:53] LABS: ALT 22 U/L (21-72); AST 12 U/L (17-59); Albumin 2.4 g/dL (3.5-5.0); Alkaline Phosphatase 150 U/L (38-126); Anion Gap 6 mmol/L; Blood Urea Nitrogen 12 mg/dL (9-20); Calcium 7.6 mg/dL (8.4-10.2); Carbon Dioxide 27 mmol/L (22-30); Chloride 107 mmol/L (98-107); Glucose 85 mg/dL (74-99); Potassium 3.4 mmol/L (3.5-5.1); Sodium 140 mmol/L (137-145); Total Bilirubin 0.4 mg/dL (0.2-1.3); Total Protein 4.7 g/dL (6.3-8.2)
[2018-03-05] MEDS: PANTOPRAZOLE 40 MG/10 ML VIAL IVP SCH ×2 (11:09→22:26)
--- NOTE | 2018-03-05 11:17 | P.CONS ---
History of Present Illness - Reason for Consult Consult date: 03/05/18 Liposarcoma on Chemotherapy Requesting physician: Mark Martines - Chief Complaint GI Bleeding - History of Present Illness Mr. Kelley is a pleasant male patient who originally presented in October 2015 with progressive abdominal pain and distention. On 11/12/[address] scan revealed an 18cm intra abdominal mass and two additional smaller masses in the pelvis measuring 4.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 He was referred to Dr. Garcia at [facility], underwent RP exploration and was found to have mass sitting in the proximal root of the mesentery encircling this entire segment and the in the very posterior segment of the mass. It was the SMA and SMV, multiple biopsies done which also revealed well differentiated liposarcoma. CT scan on 01/09/16 revealed 25cm mass in mesentery and calcified mass in pelvis. He therefore underwent chemotherapy under the direction of Dr. Smith, he received AIM Regimen (Adriamycin and Ifosfamide on 01/28/16), Cycle 2 on - Repeat CT March 2016 revealed slight progression. He was then referred to Dr. Ibrahim at [facility] has remained under his care since, he has underwent multiple lines of therapy, including immunotherapy. He now receives Selinexor, as a part of clinical trial which was initiated in October of this year (2018). He has had stable disease - He recently seen Dr. Smith in Office to inquire about undergoing treatment closer to home. With him being a part of a clinical trial and his exposure to many lines of therapy over the past two years it was recommended he remain under [facility] care to remain in the clinical trial. He now presents to Emergency room with concern for GI Bleeding. Review of Systems A 14 point review of systems assessed and completed and all negative except HPI Past Medical History Past Medical History: Cancer, Eye Disorder, Pneumonia, Prostate Disorder Additional Past Medical History / Comment(s): 11/16/15 pt had abdominal pain, abdominal mass and diagnosed with liposarcoma, started chemo, has had CINV, cystits, amenia, BASAL CELL skin cancer (several) with removals, lt eye cataract ,prostatitis since age 22, agent orange exposure. pt. has a PE diagnosed apx. 1 week ago 12/7/18. taking lovenox injections daily for treatment History of Any Multi-Drug Resistant Organisms: MRSA Year Discovered:: 02/29/16 MDRO Source:: left big toe Past Surgical History: Appendectomy, Tonsillectomy Additional Past Surgical History / Comment(s): 12/31/15, LAPAROTOMY @ [facility] (UNABLE TO DO BOWEL RESECTION TUMOR INVOLVED IN MESENTARY). Several areas of basal cell ca removed, 11/19/15 needle aspiration cat scan [facility]x [facility] abdominal [facility]. Past Anesthesia/Blood Transfusion Reactions: No Reported Reaction Additional Past Anesthesia/Blood Transfusion Reaction / Comm: PT'S FATHER WENT INTO A COMA AND SHORTLY THEREAFTER,AFTER RECEIVING IV CONTRAST DYE. Past Psychological History: No Psychological Hx Reported Additional Psychological History / Comment(s): Pt has a brother who resides with him.. His brother is legally blind and has had cancer. 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 Pt no longer drives-his sister drives his to appts. Smoking Status: Never smoker Past Alcohol Use History: None Reported Past Drug Use History: None Reported - Past Family History Mother Family Medical History: Coronary Artery Disease (CAD), Hypertension Additional Family Medical History / Comment(s): " bled to from ulcer d/t prednisone". gallbladder removed Father Additional Family Medical History / Comment(s): D/T ALLERGY TO IV DYE.( went into a coma and shortly there after. Brother(s) Family Medical History: Cancer Medications and Allergies Home Medications Medication Instructions Recorded Confirmed Type traMADol HCl [Ultram] 50 mg PO TID PRN #90 tab 02/08/16 03/04/18 Rx Dicyclomine [Bentyl] 10 mg PO QID 03/04/18 03/04/18 History LORazepam [Ativan] 0.5 mg PO Q6HR PRN 03/04/18 03/04/18 History Morphine Sulfate Ir [MSIR] 15 mg PO Q8HR PRN 03/04/18 03/04/18 History OLANZapine [ZyPREXA] 5 mg PO HS 03/04/18 03/04/18 History Ondansetron Odt [Zofran ODT] 4 - 8 mg PO Q8HR PRN 03/04/18 03/04/18 History Promethazine HCl 12.5 mg PO Q6HR PRN 03/04/18 03/04/18 History Enoxaparin [Lovenox] 100 mg SQ DAILY@1200 #1 03/06/18 03/04/18 Rx Pantoprazole [Protonix] 40 mg PO BID #60 tablet. 03/06/18 Rx Allergies Allergy/AdvReac Type Severity Reaction Status Date / Time aspirin Allergy Severe Nausea Verified 03/04/18 16:58 codeine Allergy Severe Nausea & Verified 03/04/18 16:58 Vomiting Penicillins Allergy Severe Rash/Hives Verified 03/04/18 16:58 Sulfa (Sulfonamide Allergy Severe Rash/Hives Verified 03/04/18 16:58 Antibiotics) Mushroom Allergy Unknown Verified 03/04/18 16:58 Physical Exam Vitals: Vital Signs Temp Pulse Pulse Resp BP BP Pulse Ox 03/05/18 06:37 97.9 F 70 16 113/63 94 L 03/05/18 01:00 97.9 F 73 20 109/65 94 L 03/05/18 00:10 72 111/68 03/04/18 20:22 98.3 F 77 18 105/71 96 03/04/18 16:34 98.4 F 84 18 116/70 94 L Intake and Output 03/04/18 03/05/18 03/05/18 22:59 06:59 14:59 Output Total 100 Balance -100 Output: Urine 100 Other: Weight 68.946 kg - Constitutional General appearance: cooperative, no acute distress - EENT Eyes: EOMI, PERRLA ENT: NA/AT, normal oropharynx - Neck Neck: normal ROM - Respiratory Respiratory: bilateral: CTA - Cardiovascular Rhythm: regular Heart sounds: normal: S1, S2 - Gastrointestinal General gastrointestinal: normal bowel sounds - Integumentary Integumentary: pale - Musculoskeletal Musculoskeletal: generalized weakness, strength equal bilaterally - Psychiatric Psychiatric: A&O x's 3, appropriate affect, intact judgment & insight Results CBC & Chem 7: 03/05/18 09:28 03/05/18 09:28 Labs: Abnormal Lab Results - Last 24 Hours (Table) 03/04/18 03/04/18 03/04/18 Range/Units 17:31 17:31 17:31 RBC 2.79 L (4.30-5.90) m/uL Hgb 9.8 L (13.0-17.5) gm/dL Hct 30.5 L (39.0-53.0) % MCV 109.2 H (80.0-100.0) fL MCH 35.2 H (25.0-35.0) pg RDW 15.6 H (11.5-15.5) % Potassium (3.5-5.1) mmol/L Creatinine 0.57 L (0.66-1.25) mg/dL Glucose 115 H (74-99) mg/dL Calcium 8.0 L (8.4-10.2) mg/dL AST (17-59) U/L Alkaline Phosphatase 175 H (38-126) U/L Total Creatine Kinase 21 L (55-170) U/L Total Protein 5.1 L (6.3-8.2) g/dL Albumin 2.7 L (3.5-5.0) g/dL 03/05/18 03/05/18 Range/Units 09:28 09:28 RBC 2.56 L (4.30-5.90) m/uL Hgb 8.9 L (13.0-17.5) gm/dL Hct 28.3 L (39.0-53.0) % MCV 110.7 H (80.0-100.0) fL MCH (25.0-35.0) pg RDW 15.7 H (11.5-15.5) % Potassium 3.4 L (3.5-5.1) mmol/L Creatinine 0.51 L (0.66-1.25) mg/dL Glucose (74-99) mg/dL Calcium 7.6 L (8.4-10.2) mg/dL AST 12 L (17-59) U/L Alkaline Phosphatase 150 H (38-126) U/L Total Creatine Kinase (55-170) U/L Total Protein 4.7 L (6.3-8.2) g/dL Albumin 2.4 L (3.5-5.0) g/dL Assessment and Plan (1) Abdominal pain Status: Acute Priority: High Code(s): R10.9 - UNSPECIFIED ABDOMINAL PAIN SNOMED Code(s): 59282210 (2) Anemia Status: Acute Code(s): D64.9 - ANEMIA, UNSPECIFIED SNOMED Code(s): 081060284 (3) Gastritis and gastroduodenitis Status: Acute Code(s): K29.70 - GASTRITIS, UNSPECIFIED, WITHOUT BLEEDING; K29.90 - GASTRODUODENITIS, UNSPECIFIED, WITHOUT BLEEDING SNOMED Code(s): 6082475 Plan: Continue to monitor CBC and transfuse hemoglobin less than 7. GI COnsultation
[2018-03-05 11:25] LABS: Polychromasia Present
--- NOTE | 2018-03-05 11:50 | P.HPIM ---
History of Present Illness H&P Date: 03/05/18 Chief Complaint: vomiting 67-year-old male with a past medical history significant for liposarcoma, who presented to the emergency room with a chief complaint of vomiting that was dark maroon/brownish in color. He reports he had 3 episodes of vomiting. The patient was recently diagnosed with a PE and started on Lovenox. He has been following mainly at [facility] for his treatments and is currently undergoing a clinical trial. He spoke with his physician at [facility] yesterday regarding his vomiting who directed the patient to come to the ER for further evaluation. Laboratory data upon admission reveals white count 7.5. Hemoglobin 9.8. Platelet count 325. Sodium 138. Potassium 3.6. BUN 18. Creatinine 0.57. Glucose 115. Troponin negative 1. The patient was admitted to the hospital under the care of Dr. Martines. Consultations were placed to oncology and general surgery. REVIEW OF SYSTEMS: Those systems with pertinent positive or pertinent negative responses have been documented in the HPI PHYSICAL EXAM: GENERAL: This is a thin 67-year-old male in no apparent distress at the time of examination. Pleasant and cooperative. HEENT: Head is atraumatic, normocephalic. Pupils are equal, round, and reactive to light. Sclerae anicteric. Conjunctivae are clear. Mucus membranes of the mouth are moist. Neck is supple. RESPIRATORY: Clear to auscultation. No wheezes, rales, or rhonchi. No use of accessory muscles. Patient maintaining oxygen saturation greater than 92%. No chest wall tenderness is noted on palpation or with deep breathing. CARDIOVASCULAR: Regular rate and rhythm. S1 and S2 noted. No systolic or diastolic murmur auscultated. No JVD noted. No S3 or S4 noted. GASTROINTESTINAL: Large firm mass palpated throughout all quadrants. Normal active bowel sounds auscultated x 4 quadrants. INTEGUMENTARY: No cyanosis. No jaundice. No rashes noted. No cellulitis noted. EXTREMITIES: 2+ peripheral pulses. No evidence of peripheral edema. No calf tenderness noted. NEUROLOGIC: Cranial nerves II-XII intact. PSYCHIATRIC: Awake, alert, and oriented X 3. Appropriate affect. Intact judgement and insight. ASSESSMENT: Haematemesis Recent diagnosis of PE, prescribed Lovenox Liposarcoma, undergoing treatment at [facility] History of MRSA, left great toe, 2016 PLAN: General surgery and oncology on consult. Appreciate recommendations. NPO IV fluids Patient scheduled for EGD today Hold Lovenox. May resume post EGD depending on EGD results. Home meds as appropriate Monitor labs GI prophylaxis: Protonix 40 mg IV BID DVT prophylaxis: SCDs to bilateral Le Monitor vital signs and address as appropriate Discharge planning: Patient to return home when stable Further recommendations pending patient's course Nurse practitioner note has been reviewed by physician. Signing provider agrees with the documented findings, assessment, and plan of care. Past Medical History Past Medical History: Cancer, Eye Disorder, Pneumonia, Prostate Disorder Additional Past Medical History / Comment(s): 11/16/15 pt had abdominal pain, abdominal mass and diagnosed with liposarcoma, started chemo, has had CINV, cystits, amenia, BASAL CELL skin cancer (several) with removals, lt eye cataract ,prostatitis since age 22, agent orange exposure. pt. has a PE diagnosed apx. 1 week ago 02/26/18. taking lovenox injections daily for treatment History of Any Multi-Drug Resistant Organisms: MRSA Date of last positivie culture/infection: 02/29/16 MDRO Source:: left big toe Past Surgical History: Appendectomy, Tonsillectomy Additional Past Surgical History / Comment(s): 12/31/15, LAPAROTOMY @ [facility] (UNABLE TO DO BOWEL RESECTION TUMOR INVOLVED IN MESENTARY). Several areas of basal cell ca removed, 11/19/15 needle aspiration cat scan guided bx of abdominal mass, [facility]. Past Anesthesia/Blood Transfusion Reactions: No Reported Reaction Additional Past Anesthesia/Blood Transfusion Reaction / Comment(s): PT'S FATHER WENT INTO A COMA AND SHORTLY THEREAFTER,AFTER RECEIVING IV CONTRAST DYE. Past Psychological History: No Psychological Hx Reported Additional Psychological History / Comment(s): Pt has a brother who resides with him.. His brother is legally blind and has had cancer. 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 Pt no longer drives-his sister drives his to appts. Smoking Status: Never smoker Past Alcohol Use History: None Reported Past Drug Use History: None Reported - Past Family History Mother Family Medical History: Coronary Artery Disease (CAD), Hypertension Additional Family Medical History / Comment(s): " bled to from ulcer d/t prednisone". gallbladder removed Father Additional Family Medical History / Comment(s): D/T ALLERGY TO IV DYE.( went into a coma and shortly there after. Brother(s) Family Medical History: Cancer Medications and Allergies Home Medications Medication Instructions Recorded Confirmed Type traMADol HCl [Ultram] 50 mg PO TID PRN #90 tab 02/08/16 03/04/18 Rx Dicyclomine [Bentyl] 10 mg PO QID 03/04/18 03/04/18 History Enoxaparin [Lovenox] 100 mg SQ DAILY@1200 03/04/18 03/04/18 History LORazepam [Ativan] 0.5 mg PO Q6HR PRN 03/04/18 03/04/18 History Morphine Sulfate Ir [MSIR] 15 mg PO Q8HR PRN 03/04/18 03/04/18 History OLANZapine [ZyPREXA] 5 mg PO HS 03/04/18 03/04/18 History Ondansetron Odt [Zofran ODT] 4 - 8 mg PO Q8HR PRN 03/04/18 03/04/18 History Promethazine HCl 12.5 mg PO Q6HR PRN 03/04/18 03/04/18 History Allergies Allergy/AdvReac Type Severity Reaction Status Date / Time aspirin Allergy Severe Nausea Verified 03/04/18 16:58 codeine Allergy Severe Nausea & Verified 03/04/18 16:58 Vomiting Penicillins Allergy Severe Rash/Hives Verified 03/04/18 16:58 Sulfa (Sulfonamide Allergy Severe Rash/Hives Verified 03/04/18 16:58 Antibiotics) Mushroom Allergy Unknown Verified 03/04/18 16:58 Physical Exam Vitals: Vital Signs Temp Pulse Pulse Resp BP BP Pulse Ox 03/05/18 06:37 97.9 F 70 16 113/63 94 L 03/05/18 01:00 97.9 F 73 20 109/65 94 L 03/05/18 00:10 72 111/68 03/04/18 20:22 98.3 F 77 18 105/71 96 03/04/18 16:34 98.4 F 84 18 116/70 94 L Intake and Output 03/04/18 03/05/18 03/05/18 22:59 06:59 14:59 Output Total 100 Balance -100 Output: Urine 100 Other: Weight 68.946 kg Results CBC & Chem 7: 03/05/18 09:28 03/05/18 09:28 Labs: Abnormal Lab Results - Last 24 Hours (Table) 03/04/18 03/04/18 03/04/18 Range/Units 17:31 17:31 17:31 RBC 2.79 L (4.30-5.90) m/uL Hgb 9.8 L (13.0-17.5) gm/dL Hct 30.5 L (39.0-53.0) % MCV 109.2 H (80.0-100.0) fL MCH 35.2 H (25.0-35.0) pg RDW 15.6 H (11.5-15.5) % Creatinine 0.57 L (0.66-1.25) mg/dL Glucose 115 H (74-99) mg/dL Calcium 8.0 L (8.4-10.2) mg/dL Alkaline Phosphatase 175 H (38-126) U/L Total Creatine Kinase 21 L (55-170) U/L Total Protein 5.1 L (6.3-8.2) g/dL Albumin 2.7 L (3.5-5.0) g/dL Thrombosis Risk Factor Assmnt - Choose All That Apply Any of the Below Risk Factors Present?: Yes Each Risk Factor Represents 2 Points: Malignancy Each Risk Factor Represents 3 Points: History of DVT/PE Thrombosis Risk Factor Assessment Total Risk Factor Score: 5 Thrombosis Risk Factor Assessment Level: High Risk
[2018-03-05] MEDS: SODIUM CHLORIDE 0.9% 1,000 ML IV SCH ×2 (12:16→19:12)
[2018-03-05] MEDS ORDERED: PROPOFOL 10 MG/ML 20 ML VIAL IV ONE (14:18)
--- NOTE | 2018-03-05 14:25 | P.GSCN ---
History of Present Illness Consult date: 03/05/18 Reason for Consult: GI bleed History of present illness: This is a 67-year-old male admitted to Dr. Martines service. Patient had complaints of bloody emesis. Patient maroon-colored emesis. He has a history of abdominal liposarcoma. Past Medical History Past Medical History: Cancer, Eye Disorder, Pneumonia, Prostate Disorder Additional Past Medical History / Comment(s): 11/16/15 pt had abdominal pain, abdominal mass and diagnosed with liposarcoma, started chemo, has had CINV, cystits, amenia, BASAL CELL skin cancer (several) with removals, lt eye cataract ,prostatitis since age 22, agent orange exposure. pt. has a PE diagnosed apx. 1 week ago 02/26/18. taking lovenox injections daily for treatment History of Any Multi-Drug Resistant Organisms: MRSA Year Discovered:: 02/29/16 MDRO Source:: left big toe Past Surgical History: Appendectomy, Tonsillectomy Additional Past Surgical History / Comment(s): 12/31/15, LAPAROTOMY @ [facility] (UNABLE TO DO BOWEL RESECTION TUMOR INVOLVED IN MESENTARY). Several areas of basal cell ca removed, 11/19/15 needle aspiration cat scan guided bx of abdominal mass, [facility]. Past Anesthesia/Blood Transfusion Reactions: No Reported Reaction Additional Past Anesthesia/Blood Transfusion Reaction / Comm: PT'S FATHER WENT INTO A COMA AND SHORTLY THEREAFTER,AFTER RECEIVING IV CONTRAST DYE. Past Psychological History: No Psychological Hx Reported Additional Psychological History / Comment(s): Pt has a brother who resides with him.. His brother is legally blind and has had cancer. 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 Pt no longer drives-his sister drives his to appts. Smoking Status: Never smoker Past Alcohol Use History: None Reported Past Drug Use History: None Reported - Past Family History Mother Family Medical History: Coronary Artery Disease (CAD), Hypertension Additional Family Medical History / Comment(s): " bled to from ulcer d/t prednisone". gallbladder removed Father Additional Family Medical History / Comment(s): D/T ALLERGY TO IV DYE.( went into a coma and shortly there after. Brother(s) Family Medical History: Cancer Medications and Allergies Home Medications Medication Instructions Recorded Confirmed Type traMADol HCl [Ultram] 50 mg PO TID PRN #90 tab 02/08/16 03/04/18 Rx Dicyclomine [Bentyl] 10 mg PO QID 03/04/18 03/04/18 History Enoxaparin [Lovenox] 100 mg SQ DAILY@1200 03/04/18 03/04/18 History LORazepam [Ativan] 0.5 mg PO Q6HR PRN 03/04/18 03/04/18 History Morphine Sulfate Ir [MSIR] 15 mg PO Q8HR PRN 03/04/18 03/04/18 History OLANZapine [ZyPREXA] 5 mg PO HS 03/04/18 03/04/18 History Ondansetron Odt [Zofran ODT] 4 - 8 mg PO Q8HR PRN 03/04/18 03/04/18 History Promethazine HCl 12.5 mg PO Q6HR PRN 03/04/18 03/04/18 History Allergies Allergy/AdvReac Type Severity Reaction Status Date / Time aspirin Allergy Severe Nausea Verified 03/04/18 16:58 codeine Allergy Severe Nausea & Verified 03/04/18 16:58 Vomiting Penicillins Allergy Severe Rash/Hives Verified 03/04/18 16:58 Sulfa (Sulfonamide Allergy Severe Rash/Hives Verified 03/04/18 16:58 Antibiotics) Mushroom Allergy Unknown Verified 03/04/18 16:58 Surgical - Exam Vital Signs Temp Pulse Resp BP Pulse Ox 98.4 F 84 18 116/70 94 L 03/04/18 16:34 03/04/18 16:34 03/04/18 16:34 03/04/18 16:34 03/04/18 16:34 - General well developed, cachectic, chronically ill - Eyes PERRL - ENT normal pinna - Neck no masses - Respiratory normal expansion - Cardiovascular Rhythm: regular - Abdomen Abdomen: soft Results - Labs 03/05/18 09:28 03/05/18 09:28 Abnormal Lab Results - Last 24 Hours (Table) 03/04/18 03/04/18 03/04/18 Range/Units 17:31 17:31 17:31 RBC 2.79 L (4.30-5.90) m/uL Hgb 9.8 L (13.0-17.5) gm/dL Hct 30.5 L (39.0-53.0) % MCV 109.2 H (80.0-100.0) fL MCH 35.2 H (25.0-35.0) pg RDW 15.6 H (11.5-15.5) % Potassium (3.5-5.1) mmol/L Creatinine 0.57 L (0.66-1.25) mg/dL Glucose 115 H (74-99) mg/dL Calcium 8.0 L (8.4-10.2) mg/dL AST (17-59) U/L Alkaline Phosphatase 175 H (38-126) U/L Total Creatine Kinase 21 L (55-170) U/L Total Protein 5.1 L (6.3-8.2) g/dL Albumin 2.7 L (3.5-5.0) g/dL 03/05/18 03/05/18 Range/Units 09:28 09:28 RBC 2.56 L (4.30-5.90) m/uL Hgb 8.9 L (13.0-17.5) gm/dL Hct 28.3 L (39.0-53.0) % MCV 110.7 H (80.0-100.0) fL MCH (25.0-35.0) pg RDW 15.7 H (11.5-15.5) % Potassium 3.4 L (3.5-5.1) mmol/L Creatinine 0.51 L (0.66-1.25) mg/dL Glucose (74-99) mg/dL Calcium 7.6 L (8.4-10.2) mg/dL AST 12 L (17-59) U/L Alkaline Phosphatase 150 H (38-126) U/L Total Creatine Kinase (55-170) U/L Total Protein 4.7 L (6.3-8.2) g/dL Albumin 2.4 L (3.5-5.0) g/dL Diabetes panel 03/04/18 03/05/18 Range/Units 17:31 09:28 Sodium 138 140 (137-145) mmol/L Potassium 3.6 3.4 L (3.5-5.1) mmol/L Chloride 102 107 (98-107) mmol/L Carbon Dioxide 28 27 (22-30) mmol/L BUN 18 12 (9-20) mg/dL Creatinine 0.57 L 0.51 L (0.66-1.25) mg/dL Glucose 115 H 85 (74-99) mg/dL Calcium 8.0 L 7.6 L (8.4-10.2) mg/dL AST 17 12 L (17-59) U/L ALT 23 22 (21-72) U/L Alkaline Phosphatase 175 H 150 H (38-126) U/L Total Protein 5.1 L 4.7 L (6.3-8.2) g/dL Albumin 2.7 L 2.4 L (3.5-5.0) g/dL Calcium panel 03/04/18 03/05/18 Range/Units 17:31 09:28 Calcium 8.0 L 7.6 L (8.4-10.2) mg/dL Albumin 2.7 L 2.4 L (3.5-5.0) g/dL Pituitary panel 03/04/18 03/05/18 Range/Units 17:31 09:28 Sodium 138 140 (137-145) mmol/L Potassium 3.6 3.4 L (3.5-5.1) mmol/L Chloride 102 107 (98-107) mmol/L Carbon Dioxide 28 27 (22-30) mmol/L BUN 18 12 (9-20) mg/dL Creatinine 0.57 L 0.51 L (0.66-1.25) mg/dL Glucose 115 H 85 (74-99) mg/dL Calcium 8.0 L 7.6 L (8.4-10.2) mg/dL Adrenal panel 03/04/18 03/05/18 Range/Units 17:31 09:28 Sodium 138 140 (137-145) mmol/L Potassium 3.6 3.4 L (3.5-5.1) mmol/L Chloride 102 107 (98-107) mmol/L Carbon Dioxide 28 27 (22-30) mmol/L BUN 18 12 (9-20) mg/dL Creatinine 0.57 L 0.51 L (0.66-1.25) mg/dL Glucose 115 H 85 (74-99) mg/dL Calcium 8.0 L 7.6 L (8.4-10.2) mg/dL Total Bilirubin 0.3 0.4 (0.2-1.3) mg/dL AST 17 12 L (17-59) U/L ALT 23 22 (21-72) U/L Alkaline Phosphatase 175 H 150 H (38-126) U/L Total Protein 5.1 L 4.7 L (6.3-8.2) g/dL Albumin 2.7 L 2.4 L (3.5-5.0) g/dL Assessment and Plan Assessment: Hematemesis. We'll perform EGD.
[2018-03-05] MEDS ORDERED: SODIUM CHLORIDE 0.9% 1,000 ML IV ONE (14:35)
--- NOTE | 2018-03-05 14:35 | P.OP ---
Date of Procedure: 03/05/18 Preoperative Diagnosis: GI bleed Postoperative Diagnosis: Mild antral gastritis No evidence of upper GI bleed Procedure(s) Performed: EGD Anesthesia: MAC Surgeon: Todd Yeager Pathology: other (Antrum) Condition: stable Disposition: PACU Description of Procedure: The patient's placed on the endoscopy table in the lateral position. He received IV sedation. The gastroscope was placed oropharynx passed in the esophagus and the stomach. The scope was placed through the pylorus. The first and second portion of the duodenum appeared normal. The scope was then brought back the antrum this was minimal inflamed. A biopsies performed. There is no evidence of blood in the duodenum or stomach. The scope was unretroflexed there is no significant hiatal hernia. The GE junction was at 40 cm. The distal esophagus appeared normal. The proximal esophagus. All. Scope withdrawn for patient.
[2018-03-05] MEDS ORDERED: OLANZapine 5 MG TAB PO SCH (21:00)
[2018-03-05] MEDS: MORPHINE SULFATE IR 15 MG TABLET PO PRN (22:24)
[2018-03-06] MEDS: PANTOPRAZOLE 40 MG/10 ML VIAL IVP SCH (07:17)
[2018-03-06] MEDS: MORPHINE SULFATE IR 15 MG TABLET PO PRN (09:30)
[2018-03-06] MEDS: SODIUM CHLORIDE 0.9% 1,000 ML IV SCH (12:24)
--- NOTE | 2018-03-06 13:01 | P.PN ---
Subjective Progress Note Date: 03/06/18 CHIEF COMPLAINT: Gastritis HISTORY OF PRESENT ILLNESS: The patient is a 67-year-old gentleman status post upper endoscopy yesterday. He reports he is feeling well. No reports of abdominal pain. He is eager to eat. PHYSICAL EXAM: VITAL SIGNS: Currently stable. GENERAL: Well-developed in no acute distress. HEENT: No sclera icterus. Extraocular movements grossly intact. Moist buccal mucosa. Head is atraumatic, normocephalic. Hears conversational speech. No nasal drainage. NECK: Supple without lymphadenopathy. CHEST: Non-labored respirations and equal bilateral excursions. CARDIOVASCULAR: Palpable 2+ radial pulses. ABDOMEN: Soft. Nondistended. No peritonitis. Minimal diffuse tenderness MUSCULOSKELETAL: No clubbing, cyanosis or edema. NEUROLOGIC: No focal or lateralizing signs. Cranial nerves II through XII grossly intact. PSYCH: Appropriate affect. Alert and oriented to person, place and time. SKIN: Well perfused. Good skin turgor. ASSESSMENT: 1. Gastritis 2. History of GI bleed PLAN: 1. Diet as tolerated 2. Continue IV fluid hydration Objective - Vital Signs Vital signs: Vital Signs Temp 99.4 F 03/06/18 05:00 Pulse 71 03/06/18 05:00 Resp 18 03/06/18 05:00 BP 119/63 03/06/18 05:00 Pulse Ox 95 03/06/18 05:00 Intake & Output 03/05/18 03/06/18 03/06/18 18:59 06:59 18:59 Intake Total 441 680 1569 Balance 323 564 9607 Intake: IV 200 Intake, IV Titration 262 900 Amount Sodium Chloride 0.9% 1, 262 900 000 ml @ 75 mls/hr IV . [id number] [facility] Rx#:[id number] Oral 250 1100 Other: Voiding Method Toilet # Voids 2 2 - Labs CBC & Chem 7: 03/05/18 09:28 03/05/18 09:28 Assessment and Plan (1) Gastritis and gastroduodenitis Current Visit: Yes Status: Acute Code(s): K29.70 - GASTRITIS, UNSPECIFIED, WITHOUT BLEEDING; K29.90 - GASTRODUODENITIS, UNSPECIFIED, WITHOUT BLEEDING SNOMED Code(s): 0404496 (2) Gastrointestinal hemorrhage Current Visit: Yes Status: Acute Code(s): K92.2 - GASTROINTESTINAL HEMORRHAGE, UNSPECIFIED SNOMED Code(s): 17444139
[2018-03-06 13:35] VITALS: BMI 20.6
[2018-03-06 15:09] VITALS: BP 118/71; PULSE 76; RESP 16; TEMP 97.8
--- NOTE | 2018-03-06 23:47 | DS ---
DISCHARGE SUMMARY FINAL DIAGNOSES: 1. Upper gastrointestinal bleeding with acute blood loss anemia status post EGD showing antral gastritis. 2. Recent diagnosis of pulmonary embolism on Lovenox outpatient. 3. Liposarcoma, undergoing treatment at [facility]. 4. History of MRSA. DISCHARGE DISPOSITION: Patient discharged in stable condition with guarded prognosis. HISTORY OF PRESENT ILLNESS: This 67-year-old gentleman with a past history of multiple medical problems, being followed by Dr. Martines in the outpatient setting, was admitted with hematemesis and upper GI bleeding. Hemoglobin was 9.8 then 8.9. EGD done by surgery, Dr. Yeager, showed antral gastritis. The patient is keen on going home at this time. The patient will be discharged in stable condition with guarded prognosis. On exam, vital signs are stable. Abdomen soft. NERVOUS SYSTEM: No focal deficit. DISCHARGE DIET: Cardiac, soft, bland. DISCHARGE ACTIVITIES: Limited until followup. FOLLOWUP: Follow up with Dr. Martines in 2-3 days. CBC and BMP. Follow with surgery. Other medications are: 1. Bentyl 10 mg q.i.d. 2. Ativan 1.5 mg q.6h. 3. ultram 50 mg q.8h p.r.n. 4. Zyprexa 5 mg q.h.s. 5. Zofran 48 mg q.8h p.r.n. 6. Promethazine 12.5 mg q.6h p.r.n. 7. Lovenox 100 mg subcu daily, hold for now, initiate in 3-4 days if the hemoglobin is stable in the outpatient setting. 8. Protonix 40 mg p.o. b.i.d. 9. Ultram 50 mg p.o. t.i.d. p.r.n. Followup with the [facility] as advised. MMODL / IJN: [id number] / [facility]
== END 2018-03-06 15:00 | disposition home or self-care (01) | DRG 378 ==
LOC: EC 16:16 → 3NMEDONC 21:12
PROVIDERS: ADMIT Family Medicine; ATTEND Family Medicine
PROC: 0DJ08ZZ Inspection of Upper Intestinal Tract, Via Natural or Artificial Opening Endoscopic (ICD-10-PCS; principal; 2018-03-04)
DX: K92.2 Gastrointestinal hemorrhage, unspecified (principal); C49.9 Malignant neoplasm of connective and soft tissue, unspecified; D62 Acute posthemorrhagic anemia; K29.90 Gastroduodenitis, unspecified, without bleeding; Z79.899 Other long term (current) drug therapy; Z80.7 Family history of other malignant neoplasms of lymphoid, hematopoietic and related tissues; Z82.1 Family history of blindness and visual loss; Z82.49 Family history of ischemic heart disease and other diseases of the circulatory system; Z85.828 Personal history of other malignant neoplasm of skin; Z86.14 Personal history of Methicillin resistant Staphylococcus aureus infection; Z86.711 Personal history of pulmonary embolism
CPT/HCPCS: 36415; 43239; 80053; 82550; 82553; 83690; 83735; 84484; 85025; 85610; 85730; 86850; 86900; 86901; 88305; 96361; 96374; 96375; 99285